=== PATIENT | female | born 1975 | race Caucasian/White ===

== ENCOUNTER → 2017-12-27 10:15 | Outpatient (CLI) | payer OTHER, MEDICAID, SELFPAY ==
[2017-12-27 11:18] LABS: Add Manual Diff / Slide Review NO; Basophils Percent Auto 0.6 % (0-2); Eosinophils Percent Auto 1.6 % (2-4); Hematocrit 39.4 % (36-46); Hemoglobin 13.4 g/dL (12.0-16.0); Lymphocytes Percent Auto 31.6 % (25-40); Mean Corpuscular HGB Conc 34.1 % (30-36); Mean Corpuscular Hemoglobin 27.1 PG (26-34); Mean Corpuscular Volume 79.3 fL (80-100); Monocytes Percent Auto 7.5 % (3-14); Neutrophils Absolute Auto 4900 /uL (3000-5900); Neutrophils Percent Auto 58.7 % (50-75); Platelet Count 300 X10^3/uL (150-400); Red Blood Cell Count 4.97 X10^6/uL (4.0-5.2); Red Cell Distribution Width 14.2 % (11.6-14.8); White Blood Cell Count 8.4 X10^3/uL (4.5-11.0)
[2017-12-27 11:51] LABS: Hemoglobin A1C% w Est Avg Glu 6.1 % (4.0-6.0)
== END ==
PROVIDERS: Visit Provider Specialist
DX: N92.0 Excessive and frequent menstruation with regular cycle (principal)
CPT/HCPCS: 36415; 83036; 85025

== ENCOUNTER → 2018-01-19 16:40 | Outpatient (CLI) | payer OTHER, MEDICAID, SELFPAY ==
[2018-01-19 17:25] LABS: Add Manual Diff / Slide Review NO; Basophils Percent Auto 0.6 % (0-2); Eosinophils Percent Auto 1.2 % (2-4); Hematocrit 43.4 % (36-46); Hemoglobin 14.4 g/dL (12.0-16.0); Lymphocytes Percent Auto 30.9 % (25-40); Mean Corpuscular HGB Conc 33.1 % (30-36); Mean Corpuscular Hemoglobin 26.8 PG (26-34); Mean Corpuscular Volume 81.1 fL (80-100); Monocytes Percent Auto 6.9 % (3-14); Neutrophils Absolute Auto 8500 /uL (3000-5900); Neutrophils Percent Auto 60.4 % (50-75); Platelet Count 330 X10^3/uL (150-400); Red Blood Cell Count 5.35 X10^6/uL (4.0-5.2); Red Cell Distribution Width 13.9 % (11.6-14.8); White Blood Cell Count 14.1 X10^3/uL (4.5-11.0)
== END ==
PROVIDERS: Visit Provider Specialist
DX: N92.0 Excessive and frequent menstruation with regular cycle (principal)
CPT/HCPCS: 36415; 85025

== ENCOUNTER 2018-01-26 07:41 | Day surgery (SDC) | payer OTHER, MEDICAID, SELFPAY ==
[2018-01-14 13:23] VITALS: BMI 46.2
[2018-01-26] VITALS (14 sets, daily range): BP systolic 122–158; BP diastolic 72–98; PULSE 56–99; RESP 15–37; TEMP 36.2–36.6; O2SAT 89–98; BMI 45.9
--- NOTE | 2018-01-26 | PATH_ITS ---
[facility] Accession Number: [id number] . 01 Material submitted: . UTERUS . 02 Diagnosis: Uterus, Procedure Not Specified (Received As Multiple Tissue Fragments, Aggregate Weight 95 grams): Proliferative endometrium; negative for glandular hyperplasia, cytologic atypia, and malignancy. Myometrium involved by leiomyoa(s); negative for atypia and malignancy. MRV/01/28/2018 . 02 Electronically signed: . Mar Garza MD, Pathologist NPI- [id number] . 01 Gross description: . Received in formalin, labeled uterus, is a uterus in multiple pieces (95 grams, 10.5 x 6.5 x 5.2 cm in aggregate). The cervix, ovaries and fallopian tubes are absent. The tissue cannot be oriented as to anterior and posterior, and the endometrium and myometrium cannot be grossly measured. The serosa is angulo smooth and shiny. The parenchyma is angulo-white with a white whorled pattern. Platform Supervisor tissue is submitted in cassettes A1-A4. ([id number]) /[facility] . 02 Pathologist provided ICD-10: D25.9 . 02 CPT . 258773 Performed at: 01 [facility] [address], [place], [place] [id number] MD Jake Claire MD Phone: [phone] Performed at: 02 [facility] [address] [place], [place] [id number] MD Denilson Kovacs MD Phone: [phone]
--- NOTE | 2018-01-26 08:34 | PM.PREOP ---
Pre-operative Note Interval Note Pre-op Check: Yes History & Physical Reviewed by Physician and Yes Exam Performed Changes: Yes H&P completed within 30 days and has changed as indicated here:: insurance will not cover salpingectomy so will not perform unless diseased
[2018-01-26] MEDS: ONDANSETRON 4 MG/2 ML INJ IV (08:37)
[2018-01-26] MEDS: LACTATED RINGERS 1,000 ML 21 ML IV ×2 (08:37→09:20)
[2018-01-26] MEDS: CLINDAMYCIN 900 MG/50 ML PIGGYBACK 50 MG IV (08:45)
--- NOTE | 2018-01-26 09:18 | SUR.OPER ---
Lithotomy on padded OR bed, head on gel donut, gel roll to shoulders, arms secured on padded arm boards at <90 degrees abduction. Legs secured in padded yellow fins stirrups.
[2018-01-26] MEDS: BUPIVACAINE 0.5% W/ EPI (PF) VIAL 30 ML INJ (09:41)
--- NOTE | 2018-01-26 09:45 | SUR.OPER ---
Lithotomy on padded OR bed. [place]avan Pad Positioner under torso. Head on pillow, arms extended less than 90 degrees and secured. Legs secured in padded yellow fins stirrups.
--- NOTE | 2018-01-26 11:08 | PM.OP.1 ---
Operative Date/Time/Diagnoses Date of procedure: 01/26/18 Time of procedure: 11:08 Pre-op diagnosis: Menorrhagia with likely adenomyosis on ultrasound Post-op diagnosis: same Procedure & Clinicians Procedure: Laparoscopic supracervical hysterectomy Same procedure as scheduled: Yes Indications: Menorrhagia Surgeon: Rosario Bahena Division Sales Manager: Katie Salvador Anesthesia Type: General Operative Notes Findings: Normal intra-abdominal contents. Status post tubal ligation. Normal ovaries. Closure Type: primary Specimen(s): other (Uterus above the level of the cervix) Applied: catheter Estimated Blood Loss (mL): 100 Blood products transfused: none Procedure in detail: Patient is brought to the operating room where she underwent general anesthesia and placed in low yellowfin stirrups. She was prepped and draped in the usual sterile fashion. A check list was reviewed with the staff in the room prior to beginning of the case. Patient had pulsatile stockings in place and functional. 900 mg clindamycin were in prior to beginning of the case.. A latex-free [place] catheter was placed. A single-tooth tenaculum was placed on the anterior lip of the cervix and the cervix dilated to a #6 Hegar dilator. The uterine manipulator was placed through the cervix into the uterus with the balloon inflated with 3 mL of air. The area of the umbilical incision and the 5 mm right and left lower quadrant incisions were injected with Marcaine. An incision was made with scalpel. The verries needle was placed into the abdomen but could not confirm in the appropriate place with withdrawal on a syringe and then free flow of fluid down through the needle so an incision was made in the umbilicus. The incision was carried down to the fascial layer which was incised transversely and held with 0 Polysorb suture x2. Peritoneum was entered bluntly and the Bell cannula was placed in the abdomen. The abdomen was insufflated with CO2. There did not appear to be any damage is placement of the trocar. The right and left lower quadrant incisions were made with the scalpel and the trochars placed without damage to internal structures. The PK forceps were used to cauterize the utero-ovarian ligaments. The round ligaments were cautery on both sides. Sequential bites were taken down the broad ligaments. The uterine arteries were cauterized. An incision was made above the level bladder pushing the bladder away from the cervix. The FAVIOLA loop was placed around the uterus and the uterus was amputated above the level of the bladder. Bleeding was controlled with the PK forceps. The PK forceps were used to cauterize in the endocervical canal. A supracervical incision was made and an 11 mm port placed. A 15 mm Endo Catch bag was placed in the abdomen. The uterus, tubes and ovaries were placed in the bag and brought up through the suprapubic port site. The Braxton O was placed. The uterus was hand morselized. The abdomen was reinsufflated and adequate hemostasis was noted. The trochars were removed and the CO2 allowed escape from the abdomen. The fascia layer of the suprapubic site was repaired with 0 Polysorb suture. Skin was closed with 4-0 Monocryl suture at the suprapubic site and the other 3 sites. The patient went to recovery room in good condition. Counts of instruments and sponges were correct. Complications: none Condition: stable Disposition: Acute Care
[2018-01-26] MEDS: HYDROMORPHONE 2 MG INJ 0.5 MG IV ×2 (11:09→11:22)
[2018-01-26] MEDS: KETOROLAC 30 MG/ML VIAL IV (11:12)
--- NOTE | 2018-01-26 11:34 | SUR.PHASEI ---
Pt declined po intake. Denied nausea. O2 [id number].
--- NOTE | 2018-01-26 11:45 | SUR.PHASEI ---
Report called to VESNA Gamino
--- NOTE | 2018-01-26 12:04 | SUR.PHASEI ---
Dr. Bahena notified urine very cloudy, ua ordered. Hanny notified
--- NOTE | 2018-01-26 12:05 | SUR.PHASEI ---
Pt transferred to the floor. Report to Hanny. VS stable, Bandaids cdi x3, Aquacel CDI. IV saline locked. Colunga patent, urine cloudy. CPAP and belongings bag in room. Pt's friend, Mary, notified patient in 203.
--- NOTE | 2018-01-26 13:41 | PC.NURSE ---
Addendum entered by Hanny Gibson R.N. 01/26/18 14:09: Pt given 2 percocet for discomfort and given effexor. Denies nausea after taking. Pts u/a just sent down to lab as well. Original Note: Pt states that she is in a bit discomfort but pain is tolerable. She has 3 lap sites to lower abdomen and then a small aquacel under panus area. Pt is on LR at 100cc/hr. Colunga put out yellow merky urine. There is an order to obtain a u/a. VSS and pt is A&Ox3. BT are Hypoactive x4. She is tolerating apple juice fine. Denies nausea and scds machine being looked for currently. Pts and daughter are visiting in room now. Pt has been admitted to the floor.
[2018-01-26] MEDS: LACTATED RINGERS 1,000 ML 100 ML IV (13:55)
[2018-01-26] MEDS: VENLAFAXINE ER 75 MG CAP 150 MG PO (13:55)
[2018-01-26] MEDS: OXYCODONE/ACETAMINOPHEN 5/325 TABLET 2 TAB PO (13:55)
[2018-01-26 16:02] LABS: Bacteria Urine None Seen; WBC Urine None Seen (0-5/HPF)
[2018-01-26 16:03] LABS: Appearance Urine UA CLEAR; Bilirubin Urine UA NEGATIVE (NEGATIVE); Color Urine UA YELLOW; Glucose Urine UA 1+ g/dL (Normal); Ketones Urine UA NEGATIVE (NEGATIVE); Leukocyte Esterase Urine UA NEGATIVE (NEGATIVE); Nitrite Urine UA NEGATIVE (Negative); Occult Blood Urine UA 1+ (Negative); Protein Urine UA NEGATIVE (Negative); Urobilinogen Urine UA 0.2 E.U./dL (0.2); pH Urine UA 5.5 (4.5-8.0)
[2018-01-26 16:18] LABS: RBC Urine 1-5/HPF (0-5/HPF)
--- NOTE | 2018-01-26 17:15 | PC.NURSE ---
Addendum entered by Anastasia Canchola R.N. 01/26/18 20:58: Pt had relatively uneventful evening. IV not HL. Denies discomfort. Call light w/in reach. Dsg CDI. Call light w/in reach, bed alarm on for pt safety. Continue w/plan of care. Original Note: Pt resting at intervals. Order recieved to discontinue gutierrez. 750cc clear urine in cath when D/C'd. Assisted to BR 30 min later and states she voided but missed the hat. Lapsites on abdomen CDI. IV LR infusing @ 100cc/hr via pump into LFA w/o incidence. Stable post op course. Call light w/in reach, bed alarm on for pt safety.
[2018-01-26] MEDS: TRAZODONE 100 MG TABLET PO (19:33)
[2018-01-26] MEDS: DOCUSATE 250 MG CAPSULE PO (19:33)
[2018-01-27] MEDS: OXYCODONE/ACETAMINOPHEN 5/325 TABLET 2 TAB PO ×2 (02:23→10:48)
[2018-01-27 02:32] VITALS: BP 138/67; PULSE 85; RESP 20; TEMP 36.4; O2SAT 98
[2018-01-27 06:40] VITALS: BP 107/58; PULSE 74; RESP 20; TEMP 36.6; O2SAT 95
[2018-01-27] MEDS: PANTOPRAZOLE 40 MG TABLET PO (07:42)
[2018-01-27 08:11] LABS: Add Manual Diff / Slide Review NO; Basophils Percent Auto 0.2 % (0-2); Eosinophils Percent Auto 0.1 % (2-4); Hematocrit 37.3 % (36-46); Hemoglobin 12.4 g/dL (12.0-16.0); Lymphocytes Percent Auto 10.3 % (25-40); Mean Corpuscular HGB Conc 33.2 % (30-36); Mean Corpuscular Hemoglobin 26.7 PG (26-34); Mean Corpuscular Volume 80.4 fL (80-100); Monocytes Percent Auto 7.8 % (3-14); Neutrophils Absolute Auto 16800 /uL (3000-5900); Neutrophils Percent Auto 81.6 % (50-75); Platelet Count 316 X10^3/uL (150-400); Red Blood Cell Count 4.64 X10^6/uL (4.0-5.2); Red Cell Distribution Width 14.1 % (11.6-14.8); White Blood Cell Count 20.5 X10^3/uL (4.5-11.0)
--- NOTE | 2018-01-27 08:46 | P.DS_ITS ---
History of Present Illness Date Patient Seen: 01/27/18 Time Patient Seen: 08:42 Chief complaint: [id number] LSCH *OPB* menorrhagia Narrative: Patient with menorrhagia for laparoscopic supracervical hysterectomy Discharge Providers Date of admission: 01/26/2018 Consults: 01/26/18 08:10 Consult to Respiratory Therapy Evaluate & Treat Comment: Physician Instructions: Evaluate and treat Discharge provider: Rosario Bahena MD Discharge Date: 01/27/18 Summary Discharge Diagnosis: Menorrhagia status post laparoscopic supracervical hysterectomy Hospital Course: Patient underwent a laparoscopic supracervical hysterectomy on 01/26/2018. She did well post operative. She was ambulatory and urinating well. Her pain was under control with minimal pain medicine. Status at Discharge Functional status at discharge: independent ambulation Overall status at discharge: patient is progressing back to baseline Time Spent with Patient Less than 30 minutes Exam Vital Signs (past 8 hours): - 01/27/18 02:32 01/27/18 06:40 Temperature 97.5 F L 97.9 F Pulse Rate 85 74 Respiratory Rate 20 20 Blood Pressure 138/67 107/58 L Pulse Oximetry 98 95 Oxygen Delivery Method Room Air Oxygen Flow Rate 0 Narrative Exam Narrative: Patient's abdomen is soft with appropriate tenderness. Her dressings are clean dry and intact. Minimal vaginal bleeding. Extremities without edema and nontender. Objective Labs Result Diagrams: 01/27/18 07:48 Labs: Laboratory Results - last 24 hr 01/26/18 01/27/18 14:08 07:48 WBC 20.5 H RBC 4.64 Hgb 12.4 Hct 37.3 MCV 80.4 MCH 26.7 MCHC 33.2 RDW 14.1 Plt Count 316 Neut % (Auto) 81.6 H Lymph % (Auto) 10.3 L [place] % (Auto) 7.8 Eos % (Auto) 0.1 L Baso % (Auto) 0.2 Neut # (Auto) 46665 H Urine Color Yellow Urine Appearance Clear Urine pH 5.5 Ur Specific [place] 1.010 Urine Protein Negative Urine Glucose (UA) 1+ Urine Ketones Negative Urine Occult Blood 1+ H Urine Nitrate Negative Urine Bilirubin Negative Urine Urobilinogen 0.2 Ur Leukocyte Esterase Negative Urine RBC 1-5/hpf Urine WBC None seen Urine Bacteria None seen Ur Culture Indicated? Not Reportable Micro UA Comment Not Reportable Discharge Plan Discharge Plan Patient Disposition: Home Discharge Med Rec/Prescriptions Prescriptions: New oxycodone-acetaminophen 5-325 mg Tablet 2 tab PO Q4HR PRN (Reason: Pain, Severe (7-10)) Qty: 30 RF: 0 Continue cetirizine 10 MG tablet 10 mg PO QDAYP PRN (Reason: Allergies) Qty: 0 RF: 0 venlafaxine [Effexor XR] 150 MG capsule,extended release 24hr 150 mg PO QDAY Qty: 0 RF: 0 trazodone 100 MG tablet 100 mg PO HS Qty: 0 RF: 0 lisinopril 5 MG tablet 5 mg PO QDAY Qty: 0 RF: 0 oxycodone-acetaminophen [Endocet] 5-325 mg tablet 2 tab PO Q4-6H PRN (Reason: pain) Qty: 30 RF: 0 omeprazole 40 mg capsule,delayed release(DR/EC) 40 mg PO DAILY RF: 0 sucralfate [Carafate] 1 gram tablet 1 gram PO QACHS RF: 0 hydroxyzine pamoate [Vistaril] 25 mg capsule 25 mg PO Q4HR PRN (Reason: Anxiety) RF: 0 Follow up/Referrals: Rosario Bahena MD [Physician] - 1 Week (pt has appt scheduled) Discharge Orders: Discharge (Order); Ordered 01/27/18 Ordered By: Rosario Bahena Provider Discharge Instructions Diet: Regular Activity: nothing in vagina for 4 weeks Skin/Wound/Dressing Care Report to your healthcare provider any signs of infection, such as:: chills, fever, increased pain and unusual drainage Dressing: leave lower dressing on until postop visit may remove other bandaids ok to get wet today pat dry steristips Visit Report/Discharge Packet Stand Alone Forms: Surgery Discharge Discharge Data Attending Provider: Rosario Bahena Quality VTE Deep Vein Thrombosis/Pulmonary Embolism Present on Admission: No
[2018-01-27] MEDS: DOCUSATE 250 MG CAPSULE PO (10:02)
[2018-01-27] MEDS: LISINOPRIL 5 MG TABLET PO (10:03)
[2018-01-27] MEDS: VENLAFAXINE ER 75 MG CAP 150 MG PO (10:03)
--- NOTE | 2018-01-27 11:12 | PC.NURSE ---
Ariana was able to freely ambulate and shower this AM. Taking Percocet for pain mgmt. with good relief. She is eating general diet. Voiding w/ out problems. She states she has little to no vag. discharge. VSS. Scope sites X 3 covered with bandaids, which were changed after she showered. Lower abd. drsg. clean/dry/intact and left to be changed by MD at first post-op appt. Ariana was disch. home to care of at 1110.
--- NOTE | 2018-01-27 15:10 | CM.IDA ---
No barriers identified in multi-disciplinary rounds to pt's safe DC home today. Pt eager to DC home, no DC concerns. JW
== END 2018-01-27 11:10 | disposition home or self-care (01) ==
LOC: OR 07:43 → AC 07:44
PROVIDERS: Visit Provider Specialist
PROC: 0UT94ZL Resection of Uterus, Supracervical, Percutaneous Endoscopic Approach (ICD-10-PCS; CPT 58542; principal; 2018-01-26 08:45)
DX: D25.9 Leiomyoma of uterus, unspecified (principal); G47.33 Obstructive sleep apnea (adult) (pediatric)
CPT/HCPCS: 58542; 36415; 81001; 85025; 88305; J0330; J1100; J1170; J1885; J2405; J2704; J2765; J3010

== ENCOUNTER 2018-02-06 19:39 | Inpatient (IN) | payer OTHER, MEDICAID, SELFPAY ==
[2018-01-26 13:18] VITALS: BMI 45.9
[2018-02-06] VITALS (8 sets, daily range): BP systolic 89–136; BP diastolic 53–90; PULSE 75–90; RESP 16–22; TEMP 36.7–37.4; O2SAT 92–100; BMI 44.9
--- NOTE | 2018-02-06 21:52 | PM.PREOP ---
Pre-operative Note Interval Note Pre-op Check: Yes History & Physical exam performed today by Physician Changes: No
--- NOTE | 2018-02-06 21:53 | PM.GYNHP.1 ---
History of Present Illness Reason for admission: other Narrative: Ariana Gibson is a 42 year old female with postoperative incision abscess. Patient underwent a laparoscopic supracervical hysterectomy on 01/27/2018. She was seen 1 week later for postop exam. She seems to be doing well at that time. The day after that she began to feel more uncomfortable with her incision. Today she all of a sudden noticed discharge from her incision and began having possible fever. She was having some nausea. She has not had any vaginal bleeding. No problems with constipation or diarrhea. No problems with urination. PFSH Medical History Anxiety (Acute) Asthma (Acute) Depression (Acute) Hypertension (Acute) Sleep apnea (Acute) Dysmenorrhea (Acute) Menorrhagia (Acute) Uterus, adenomyosis (Acute) Surgical History S/P hysterectomy (Acute) History of tubal ligation (Acute) Status post delivery (Resolved) Status post dilation and curettage (Resolved) Status post laparoscopic cholecystectomy (Resolved) Social History household members: spouse and children Smoking Status: Never smoker alcohol intake: current Meds Home Medications Medication Instructions Recorded Confirmed Type cetirizine 10 mg PO QDAYP PRN #0 03/05/17 02/02/18 History lisinopril 5 mg PO QDAY #0 03/05/17 02/02/18 History trazodone 100 mg PO HS #0 03/05/17 02/02/18 History omeprazole 40 mg capsule,delayed 40 mg PO DAILY 12/27/17 02/02/18 History release sucralfate 1 gram tablet 1 gram PO QACHS 12/27/17 02/02/18 History oxycodone-acetaminophen 5 mg-325 2 tab PO Q4-6H PRN #30 tab 01/19/18 02/02/18 Rx mg tablet hydroxyzine pamoate [Vistaril] 25 mg PO Q4HR PRN 01/26/18 02/02/18 History venlafaxine [Effexor XR] 150 mg PO BEDTIME 02/06/18 02/06/18 History Allergies Allergy/AdvReac Type Severity Reaction Status Date / Time cefaclor [From CECLOR] Allergy Unknown Hives Verified 02/02/18 09:13 latex [LATEX] Allergy Unknown Rash, Verified 02/02/18 09:13 severe itching methylergonovine Allergy Unknown Chest Verified 02/02/18 09:13 [From METHERGINE] pressure Review of Systems Review of Systems Patient feeling ill with slight temperature. Increasing pain in her incision with sudden drainage. All systems reviewed & are unremarkable except as noted in HPI and below Exam Narrative Exam Narrative: Patient's HEENT exam within normal limits. Lungs are clear to auscultation percussion. Heart is regular rate and rhythm, no S3-S4 or murmurs. Abdomen is soft with her incision of the umbilicus and upper incisions. Her suprapubic incision site is draining pus and there is extensive redness of the skin in that area. Pelvic exam deferred for exam under anesthesia. Extremities without edema nontender. Objective Labs Labs: Patient had blood work done that would be general that showed a white blood cell count of 19. Assessment & Plan (1) Incisional abscess: Current visit: Yes Status: Acute Plan: Assessment/Plan Narrative: Patient will be taken for exploration of her incision with drainage of abscess and packing. Cultures of the abscess will be performed. She will be started on IV antibiotics. Consent form was signed with the patient, questions answered. Time Spent With Patient Time with patient: 25 - 35 minutes Quality VTE Deep Vein Thrombosis/Pulmonary Embolism Present on Admission: No
[2018-02-06] MEDS: LACTATED RINGERS 1,000 ML 100 ML IV (22:04)
--- NOTE | 2018-02-06 22:07 | PC.NURSE ---
2100 Pt to [facility] Acute Care from [facility]/EMS. Alert/oriented. Abdominal Pain 5-6/10, received pain meds/zofran in route. MD Bahena called to inform her that pt had arrived. Surgical crew called in. Spouse present at bedside. Oriented to room and call light. 2154: Pt off AC floor to surgery via bed.
[2018-02-06] MEDS: CLINDAMYCIN 900 MG/50 ML PIGGYBACK 50 MG IV (22:10)
--- NOTE | 2018-02-06 22:51 | PC.NURSE ---
2144- OR up to get pt. went with pt. cpap taken downstairs with pt. fluids paused. 2099- pt arrived via EMS. Pt compliant with admission. oriented to hospital room and procedures. pt admitted and fluids continued. vss. afebrile. Pt belongings and call light within reach. will continue to monitor.
--- NOTE | 2018-02-06 23:15 | PM.OP.1 ---
Operative Date/Time/Diagnoses Date of procedure: 02/06/18 Time of procedure: 23:15 Pre-op diagnosis: Incisional abscess Post-op diagnosis: same Procedure & Clinicians Procedure: Incision and drainage of incisional abscess Same procedure as scheduled: Yes Indications: Patient with 10 days postoperative laparoscopic supracervical hysterectomy with increasing incisional pain followed by a redness and drainage from the incision. CT scan showed abscess cavity under the skin above the fascia. Surgeon: Rosario Bahena Click Yes if Unassisted: Yes Anesthesia Type: General Operative Notes Findings: Infected seroma suprapubic incision site normal exam under anesthesia of pelvis Closure Type: not applicable Specimen(s): other (Aerobic and anaerobic cultures) Applied: other (Gauze packing) Estimated Blood Loss (mL): 5 Blood products transfused: none Procedure in detail: Patient was brought to the operating room where she underwent general anesthesia. She was initially placed in stirrups so a pelvic exam could be performed and was normal. No bleeding or discharge from the vagina. No evidence of infection of the cervix. The legs were replaced in the supine position. The abdomen was cleaned with Betadine. The patient was draped in the usual sterile fashion. A check system was reviewed with the staff in the room prior to beginning the case. The IV clindamycin was started prior to beginning of the case. Aerobic and anaerobic cultures were performed from the incision. The incision was already slightly open. The incision was easily opened with a clamp. Probing of the incision did not reveal any defect in the fascia. The incision was irrigated. There did not appear to be any necrotic tissue. The incision was packed with gauze dressing. Additional dressing placed on top. The patient went to recovery room in good condition. Counts of instruments sponges were correct. Complications: none Condition: stable Disposition: Acute Care Plan for aftercare: Patient will receive IV antibiotics and changing of the packing until stable
[2018-02-07] VITALS (9 sets, daily range): BP systolic 100–119; BP diastolic 50–73; PULSE 58–75; RESP 16–20; TEMP 36.2–36.9; O2SAT 94–99
[2018-02-07] MEDS: MORPHINE 2 MG/ML INJ IV ×4 (00:53→17:36)
[2018-02-07] MEDS: LACTATED RINGERS 1,000 ML 100 ML IV ×2 (00:56→06:15)
[2018-02-07] MEDS: VENLAFAXINE ER 75 MG CAP 150 MG PO ×2 (02:40→20:36)
[2018-02-07] MEDS: CLINDAMYCIN 900 MG/50 ML PIGGYBACK 50 MG IV ×3 (02:44→16:19)
[2018-02-07 07:40] LABS: Add Manual Diff / Slide Review NO; Basophils Percent Auto 0.4 % (0-2); Hematocrit 34.7 % (36-46); Hemoglobin 11.6 g/dL (12.0-16.0); Lymphocytes Percent Auto 5.5 % (25-40); Mean Corpuscular HGB Conc 33.3 % (30-36); Mean Corpuscular Hemoglobin 26.8 PG (26-34); Mean Corpuscular Volume 80.6 fL (80-100); Monocytes Percent Auto 3.1 % (3-14); Neutrophils Absolute Auto 14800 /uL (3000-5900); Platelet Count 327 X10^3/uL (150-400); Red Blood Cell Count 4.31 X10^6/uL (4.0-5.2); Red Cell Distribution Width 13.9 % (11.6-14.8); White Blood Cell Count 16.2 X10^3/uL (4.5-11.0)
--- NOTE | 2018-02-07 07:47 | PC.NURSE ---
Patient arrived to room 213 from PACU at 2319 last night. Spouse is with her at the bedside. Bulky dressing is CDI. IVFR.
[2018-02-07] MEDS: OXYCODONE/ACETAMINOPHEN 5/325 TABLET 2 TAB PO ×3 (08:50→22:15)
--- NOTE | 2018-02-07 12:53 | CM.DPNOTE ---
Discharge Planning/Care Management DCP: assessment: case received, EMR reviewed and met with pt. She is found sitting up in chair, bedside fan on. Introduced self and role. Pt is a 42 year old female who READMITTED to care of RESPIRATORY MEDICINE PHYSICIAN physician: Dr. Bahena. Pt was here for a scheduled hysterectory on 01/26 and says all went well and she discharged home on 01/27. Payer: [facility]/Medicaid. Pt was taken to surgery late last night/I&D incisional abscess. She is is now on IV antibiotics, cultures are pending, wound is being packed. P: follow as POC unfolds. If able, pt will return home to her family ( and children) when stable for same....will follow to see what might be needed. CM Discharge Assessment Start: 02/07/18 12:51 Freq: Status: Active Protocol: Document 02/07/18 12:51 ITV (Rec: 02/07/18 12:53 ITV [id number]) Discharge Planning Assessment Advance Directives? 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 Yes Whiteboard Updated in Patient Room with Yes name and ext. # of Milk Hauler Review Status In Process Next Review Type Continued Stay Review
--- NOTE | 2018-02-07 18:00 | PM.PN.1 ---
Subjective Date Patient Seen: 02/07/18 Time Patient Seen: 18:00 Interval history: Postoperative day 1 I and D of incisional abscess. Patient states she feels much better. She is not nauseated. She denies any fevers Exam Vital Signs (past 8 hours): - 02/07/18 11:00 02/07/18 15:25 Temperature 97.5 F L 97.7 F Pulse Rate 58 L 74 Respiratory Rate 20 18 Blood Pressure 119/65 119/73 Pulse Oximetry 98 99 Oxygen Delivery Method Room Air Oxygen Flow Rate 0 Narrative Exam Narrative: Patient's abdomen is soft and nontender. Her incision is much less red than preop. The incisional packing was removed and replaced. There is no evidence of necrosis. Objective Labs Result Diagrams: 02/07/18 07:30 Labs: Laboratory Results - last 24 hr 02/07/18 07:30 WBC 16.2 H RBC 4.31 Hgb 11.6 L Hct 34.7 L MCV 80.6 MCH 26.8 MCHC 33.3 RDW 13.9 Plt Count 327 Neut % (Auto) 91.0 H Lymph % (Auto) 5.5 L [place] % (Auto) 3.1 Eos % (Auto) 0.0 L Baso % (Auto) 0.4 Neut # (Auto) 37476 H Assessment & Plan (1) Incisional abscess: Current visit: Yes Status: Acute (2) Morbid obesity with BMI of 40.0-44.9, adult: Current visit: Yes Status: Acute (3) Sleep apnea treated with nocturnal BiPAP: Current visit: Yes Status: Acute Plan: Assessment/Plan Narrative: Patient will be continued on IV antibiotics and packing changes until return of culture and sensitivity and is long as patient remains afebrile and improving. Likely home on 02/09/2018. Preauthorization for wound care clinic is underway. Quality VTE Deep Vein Thrombosis/Pulmonary Embolism Present on Admission: No
--- NOTE | 2018-02-07 18:04 | P.PN_ITS ---
Subjective Date Patient Seen: 02/07/18 Time Patient Seen: 18:00 Interval history: Postoperative day 1 I and D of incisional abscess. Patient states she feels much better. She is not nauseated. She denies any fevers Exam Vital Signs (past 8 hours): - 02/07/18 11:00 02/07/18 15:25 Temperature 97.5 F L 97.7 F Pulse Rate 58 L 74 Respiratory Rate 20 18 Blood Pressure 119/65 119/73 Pulse Oximetry 98 99 Oxygen Delivery Method Room Air Oxygen Flow Rate 0 Narrative Exam Narrative: Patient's abdomen is soft and nontender. Her incision is much less red than preop. The incisional packing was removed and replaced. There is no evidence of necrosis. Objective Labs Result Diagrams: 02/07/18 07:30 Labs: Laboratory Results - last 24 hr 02/07/18 07:30 WBC 16.2 H RBC 4.31 Hgb 11.6 L Hct 34.7 L MCV 80.6 MCH 26.8 MCHC 33.3 RDW 13.9 Plt Count 327 Neut % (Auto) 91.0 H Lymph % (Auto) 5.5 L [place] % (Auto) 3.1 Eos % (Auto) 0.0 L Baso % (Auto) 0.4 Neut # (Auto) 15424 H Assessment & Plan (1) Incisional abscess: Current visit: Yes Status: Acute (2) Morbid obesity with BMI of 40.0-44.9, adult: Current visit: Yes Status: Acute (3) Sleep apnea treated with nocturnal BiPAP: Current visit: Yes Status: Acute Plan: Assessment/Plan Narrative: Patient will be continued on IV antibiotics and packing changes until return of culture and sensitivity and is long as patient remains afebrile and improving. Likely home on 02/09/2018. Preauthorization for wound care clinic is underway. Quality VTE Deep Vein Thrombosis/Pulmonary Embolism Present on Admission: No
[2018-02-07] MEDS: SODIUM CHLORIDE 0.9% FLUSH 10 ML IV (20:29)
[2018-02-07] MEDS: CLINDAMYCIN 900 MG/50 ML PIGGYBACK 100 MG IV (20:31)
[2018-02-07] MEDS: TRAZODONE 100 MG TABLET PO (20:38)
--- NOTE | 2018-02-07 22:18 | PC.NURSE ---
Pt is A and O x 4, VSS. Incision from I and D weeping sero sanguinous fluid, and packing changed today by MD. Outer dressing is 4 X 4 s in the fold and abd on top. Pt rates pain 4-6/10; gets good relief from 2 perocet. Tolerating ABOs well. HR reg and LS clear. + BT x 1, hard to hear. Pt is calm and cooperative.
[2018-02-08] MEDS: CLINDAMYCIN 900 MG/50 ML PIGGYBACK 50 MG IV (01:08)
[2018-02-08] MEDS: MORPHINE 2 MG/ML INJ IV ×2 (01:14→10:06)
[2018-02-08 01:45] VITALS: BP 100/55; PULSE 50; RESP 14; TEMP 36.4; O2SAT 99
[2018-02-08 05:22] VITALS: BP 99/55; PULSE 50; RESP 15; TEMP 36.6; O2SAT 97
[2018-02-08] MEDS: OXYCODONE/ACETAMINOPHEN 5/325 TABLET 2 TAB PO (08:38)
[2018-02-08 08:57] LABS: Add Manual Diff / Slide Review NO; Basophils Percent Auto 0.5 % (0-2); Eosinophils Percent Auto 0.5 % (2-4); Hematocrit 32.4 % (36-46); Hemoglobin 10.8 g/dL (12.0-16.0); Lymphocytes Percent Auto 20.4 % (25-40); Mean Corpuscular HGB Conc 33.2 % (30-36); Mean Corpuscular Hemoglobin 26.6 PG (26-34); Mean Corpuscular Volume 80.2 fL (80-100); Monocytes Percent Auto 7.9 % (3-14); Neutrophils Absolute Auto 8000 /uL (3000-5900); Neutrophils Percent Auto 70.7 % (50-75); Platelet Count 336 X10^3/uL (150-400); Red Blood Cell Count 4.04 X10^6/uL (4.0-5.2); Red Cell Distribution Width 13.9 % (11.6-14.8); White Blood Cell Count 11.3 X10^3/uL (4.5-11.0)
[2018-02-08 09:00] VITALS: BP 143/63; PULSE 62; RESP 24; O2SAT 100
[2018-02-08 09:56] LABS: Carbon Dioxide 28 mmol/L (22-32); Chloride 103 mmol/L (98-107); HEMOLYSIS < 15 (0-50); Potassium 3.7 mmol/L (3.4-5.1); Sodium 142 mmol/L (137-145)
--- NOTE | 2018-02-08 10:12 | PM.DS.1 ---
History of Present Illness Date Patient Seen: 02/08/18 Time Patient Seen: 10:12 Chief complaint: post op complications Narrative: Patient who was 10 days post operative laparoscopic supracervical hysterectomy and had an increase in pain and discharge from her supra pubic incision. She was evaluated at [facility] and thought to have a superficial wound abscess. She was transported here. Discharge Providers Date of admission: 02/06/18 19:39 Consults: 02/07/18 01:30 Consult to Respiratory Therapy Evaluate & Treat Comment: Physician Instructions: Evaluate and treat Discharge provider: Rosario Bahena MD Discharge Date: 02/08/18 Summary Discharge Diagnosis: wound seroma with superficial wound cellulitis Hospital Course: Patient who was 10 days post operative laparoscopic supracervical hysterectomy and had an increase in pain and discharge from her supra pubic incision. She was evaluated at [facility] and thought to have a superficial wound abscess. She was transported here. She was taken to the operating room where her incision was explored. Appeared to be a seroma that was draining with a mild superficial infection. Patient received IV antibiotics and her incision was packed. She is doing very well. Patient has remained afebrile throughout the hospitalization. Her white count has decreased significantly. Patient's abdomen is soft with appropriate tenderness. Her incision has no further erythema. She will need to continue packing her incision to heal by secondary intention. Exam Vital Signs (past 8 hours): - 02/08/18 05:22 02/08/18 09:00 Temperature 97.8 F Pulse Rate 50 L 62 Respiratory Rate 15 24 Blood Pressure 99/55 L 143/63 H Pulse Oximetry 97 100 Oxygen Delivery Method Room Air Oxygen Flow Rate 0 Narrative Exam Narrative: Abdomen is soft, nontender. Incision shows no further a erythema. Wound packing was removed and replaced. Objective Labs Result Diagrams: 02/08/18 08:20 Labs: Laboratory Results - last 24 hr 02/08/18 08:20 WBC 11.3 H RBC 4.04 Hgb 10.8 L Hct 32.4 L MCV 80.2 MCH 26.6 MCHC 33.2 RDW 13.9 Plt Count 336 Neut % (Auto) 70.7 D Lymph % (Auto) 20.4 L [place] % (Auto) 7.9 Eos % (Auto) 0.5 L Baso % (Auto) 0.5 Neut # (Auto) 8000 H Discharge Plan Discharge Plan Patient Disposition: Home Discharge Med Rec/Prescriptions Prescriptions: New sulfamethoxazole-trimethoprim 800-160 mg Tablet 1 tab PO BID Qty: 20 RF: 0 oxycodone-acetaminophen 5-325 mg Tablet 2 tab PO Q4HR PRN (Reason: Pain, Moderate (4-6)) Qty: 30 RF: 0 Continue cetirizine 10 MG tablet 10 mg PO QDAYP PRN (Reason: Allergies) Qty: 0 RF: 0 trazodone 100 MG tablet 100 mg PO HS Qty: 0 RF: 0 lisinopril 5 MG tablet 5 mg PO QDAY Qty: 0 RF: 0 oxycodone-acetaminophen [Endocet] 5-325 mg tablet 2 tab PO Q4-6H PRN (Reason: pain) Qty: 30 RF: 0 omeprazole 40 mg capsule,delayed release(DR/EC) 40 mg PO PRN PRN (Reason: Acid Reflux) RF: 0 sucralfate [Carafate] 1 gram tablet 1 gram PO QACHS RF: 0 hydroxyzine pamoate [Vistaril] 25 mg capsule 25 mg PO Q4HR PRN (Reason: Anxiety) RF: 0 venlafaxine [Effexor XR] 150 mg Capsule,Extended Release 24hr 150 mg PO BEDTIME RF: 0 Follow up/Referrals: Rosario Bahena MD [Physician] - 02/09/18 1:30 pm (appointment made) Provider Discharge Instructions Diet: Regular Activity: as tolerated Skin/Wound/Dressing Care Report to your healthcare provider any signs of infection, such as:: chills, fever, increased pain and unusual drainage Dressing: Keep as dry as possible Visit Report/Discharge Packet Visit Report Forms: Stroke Signs & Symptoms Discharge Data Attending Provider: Rosario Bahena Admit Date/Time: 02/06/18 19:39 Quality VTE Deep Vein Thrombosis/Pulmonary Embolism Present on Admission: No
[2018-02-08] MEDS: LISINOPRIL 5 MG TABLET PO (11:18)
[2018-02-08] MEDS: TRIMETH/SULFA 160/800 (DS) TABLET 1 TAB PO (11:19)
[2018-02-08] MEDS: SODIUM CHLORIDE 0.9% FLUSH 10 ML IV (11:19)
[2018-02-08 11:30] VITALS: BP 115/53; PULSE 54; RESP 24; O2SAT 96
== END 2018-02-08 13:05 | disposition home or self-care (01) | DRG 711 ==
PROVIDERS: Admitting Provider Specialist; Visit Provider Specialist
PROC: 0J980ZZ Drainage of Abdomen Subcutaneous Tissue and Fascia, Open Approach (ICD-10-PCS; principal; 2018-02-06 21:35)
DX: T81.41XA Infection following a procedure, superficial incisional surgical site, initial encounter (principal); L76.34 Postprocedural seroma of skin and subcutaneous tissue following other procedure; E66.01 Morbid (severe) obesity due to excess calories; Z68.41 Body mass index [BMI] 40.0-44.9, adult; G47.30 Sleep apnea, unspecified; I10 Essential (primary) hypertension; F32.9 Major depressive disorder, single episode, unspecified; F41.9 Anxiety disorder, unspecified; G47.33 Obstructive sleep apnea (adult) (pediatric); L03.311 Cellulitis of abdominal wall
CPT/HCPCS: 10180; 36415; 80051; 85025; 87070; 87075; 87077; 87186; 87205; 94762; J0330; J1100; J2250; J2270; J2405; J2704; J3010

== ENCOUNTER 2020-11-28 11:37 | Emergency (ER) | payer OTHER, MEDICAID, SELFPAY ==
[2018-02-06 21:17] VITALS: BMI 44.9
[2020-11-28 11:43] VITALS: BP 178/108; PULSE 80; RESP 16; TEMP 36.6; O2SAT 98; BMI 43.8
--- NOTE | 2020-11-28 12:13 | ED_ITS ---
HPI - Extremity Injury (Upper) <Erasmo Causey PA-C - Last Filed: 11/28/20 13:17> General Chief Complaint: Extremity Injury, Upper Stated Complaint: left side tingling and on fire Time Seen by Provider: 11/28/20 12:04 Source: patient Mode of arrival: Ambulatory Limitations: no limitations History of Present Illness HPI narrative: Ariana presents today with chief complaint of left shoulder and arm pain that started about 2 weeks ago. She reports that she was picking up a martinez in her kitchen and felt the pain that time. She reports that the pain is worse when she lifts her arm overhead, turns her head to the right, or presses on the upper shoulder upper back area on the left side. She has been taking ibuprofen which only seems to slightly helped her symptoms. She denies any significant fever, rash, decreased range of motion, joint swelling, chest pain, shortness of breath, exertional symptoms, nausea, diaphoresis, vomiting, abdominal pain or any other acute concerns or complaints at this time. Related Data Home Medications Medication Instructions Recorded Confirmed cetirizine 10 mg tablet 10 mg PO QDAYP PRN #0 03/05/17 02/14/18 lisinopril 5 mg tablet 5 mg PO QDAY #0 03/05/17 02/14/18 trazodone 100 mg tablet 100 mg PO HS #0 03/05/17 02/14/18 omeprazole 40 mg capsule,delayed 40 mg PO PRN PRN 12/27/17 02/14/18 release sucralfate 1 gram tablet (Carafate) 1 gram PO QACHS 12/27/17 02/14/18 hydroxyzine pamoate 25 mg capsule 25 mg PO Q4HR PRN 01/26/18 02/14/18 (Vistaril) venlafaxine 150 mg 150 mg PO BEDTIME 02/06/18 02/14/18 capsule,extended release 24 hr (Effexor XR) Previous Rx's Medication Instructions Recorded sulfamethoxazole 800 1 tab PO BID #20 tab 02/08/18 mg-trimethoprim 160 mg tablet methocarbamol 500 mg tablet 500 mg PO BID PRN #15 tab 11/28/20 Allergies Allergy/AdvReac Type Severity Reaction Status Date / Time cefaclor [From [facility]] Allergy Unknown Hives Verified 02/14/18 14:17 latex [LATEX] Allergy Unknown Rash, Verified 02/14/18 14:17 severe itching methylergonovine Allergy Unknown Chest Verified 02/14/18 14:17 [From METHERGINE] pressure Review of Systems <Erasmo Causey PA-C - Last Filed: 11/28/20 13:17> Review of Systems Narrative: As per HPI Patient History <Erasmo Causey PA-C - Last Filed: 11/28/20 13:17> Medical History (Updated 11/28/20 @ 13:17 by Erasmo Causey PA-C) Anxiety Asthma Depression Dysmenorrhea Hypertension Menorrhagia Sleep apnea Uterus, adenomyosis Surgical History (Updated 02/06/18 @ 21:31 by Jimena Shaffer RN) History of tubal ligation S/P hysterectomy Status post delivery Status post dilation and curettage Status post laparoscopic cholecystectomy Social History household members: spouse and children Smoking Status: Never smoker alcohol intake: current Smoking Status: Never smoker alcohol intake frequency: holidays/special occasions only Substance Use Type: does not use Exam <Erasmo Causey PA-C - Last Filed: 11/28/20 13:17> Narrative Exam Narrative: Exam Narrative: Const General: cooperative, healthy appearing, comfortable, no acute distress, well developed and well groomed Nutritional Appearance: Elevated BMI Orientation: alert and oriented x3 HENMT Head: normal to inspection and atraumatic Ears: hearing grossly normal bilaterally Nose: external nose normal and nares normal Face and sinus: normal facial exam Neck Neck: normal visual inspection and supple, no midline spinal tenderness. Left trapezius muscle tenderness noted with palpation. Pain with lateral flexion to the right and with rotation to the right. Resp Effort & Inspection: normal respiratory effort, able to speak in complete sentences, no audible wheezes, not labored, no nasal flaring and no respiratory distress, clear to auscultation bilaterally Cardiac Regular rate and rhythm, no discernible murmurs, rubs or gallops Extremities No significant bony tenderness to palpation. She has left trapezius muscle tenderness with palpation. She has intact range of motion of bilateral upper extremities. Pain is reproduced with raising her left arm against resistance. Neuro General: alert, oriented x3, gait normal, tone normal and moves all extremities Cognition: normal cognition Speech: speech normal Gait: normal gait Skin No rashes or lesions noted. Psych Appearance: grossly normal and well kempt Mental Status: mental status grossly normal Speech and Movement: speech and movement normal Mood: congruent mood Affect: normal affect Initial Vital Signs Initial Vital Signs: Vital Signs Temperature 97.8 F 11/28/20 11:43 Pulse Rate 80 11/28/20 11:43 Respiratory Rate 16 11/28/20 11:43 Blood Pressure 178/108 H 11/28/20 11:43 Pulse Oximetry 98 11/28/20 11:43 <Manfrde Borjas DO - Last Filed: 11/28/20 13:19> Initial Vital Signs Initial Vital Signs: Vital Signs Temperature 97.8 F 11/28/20 11:43 Pulse Rate 80 11/28/20 11:43 Respiratory Rate 16 11/28/20 11:43 Blood Pressure 178/108 H 11/28/20 11:43 Pulse Oximetry 98 11/28/20 11:43 Course <Erasmo Causey PA-C - Last Filed: 11/28/20 13:17> Orders Ordered: Discontinued Medications Ketorolac Tromethamine (Ketorolac 30 Mg/Ml Vial) 30 mg IM NOW ONE Stop: 11/28/20 12:32 Last Admin: 11/28/20 12:39 Dose: 30 mg Documented by: DONALD Vital Signs Vital signs: Vital Signs - 8 hr 11/28/20 11:43 11/28/20 13:04 Temperature 97.8 F Pulse Rate 80 71 Respiratory Rate 16 Blood Pressure 178/108 H 171/102 H Pulse Oximetry 98 99 <Manfred Borjas DO - Last Filed: 11/28/20 13:19> Orders Ordered: Discontinued Medications Ketorolac Tromethamine (Ketorolac 30 Mg/Ml Vial) 30 mg IM NOW ONE Stop: 11/28/20 12:32 Last Admin: 11/28/20 12:39 Dose: 30 mg Documented by: DONALD Vital Signs Vital signs: Vital Signs - 8 hr 11/28/20 11:43 11/28/20 13:04 Temperature 97.8 F Pulse Rate 80 71 Respiratory Rate 16 Blood Pressure 178/108 H 171/102 H Pulse Oximetry 98 99 MDM - Extremity Injury (Upper) <Erasmo Causey PA-C - Last Filed: 11/28/20 13:17> MDM Narrative Medical decision making narrative: I considered ACS, thoracic outlet syndrome, DVT, bony injury. She does have a history of obesity, sleep apnea, and elevated blood pressure which are risk factors for acute coronary syndrome. However, her symptoms are nonexertional, she denies chest pain, dyspnea, diaphoresis, and her symptoms are reproducible on examination with direct palpation. I think that a more life-threatening etiology of her symptoms is less likely at this time. However, strict ER return precautions were discussed with the patient if his symptoms fail to improve with the management discussed. Also recommend that she follow up with her family doctor to assess her hypertension. 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 Patient verbalizes understanding and agrees to plan and has no further concerns at this time. Thank you A [id number] system was used with the dictation of this note. Please disregard any spelling or grammatical errors. Discharge Plan Departure Patient Disposition: Home Clinical Impression: Trapezius muscle spasm Hypertension Qualifiers: Hypertension type: unspecified Qualified Code(s): I10 - Essential (primary) hypertension Instructions: DI for Muscle Spasm Activity Restrictions/Additional Instructions: It was very nice to meet you this afternoon. I suspect that your symptoms are due to a muscle spasm in your shoulder and neck. Please do the stretching that we discussed as well as good range of motion activities to help loosen up the muscle. You can use muscle relaxers as needed but please note that these can make you sleepy. Please only try these at night and do not take while you are working. If you experience chest pain, exertional symptoms, difficulty breathing, fever, rash or have any other acute concerns or complaints do not hesitate to return for re-evaluation. Thank you Erasmo Causey PA-C Prescriptions: New methocarbamol 500 mg tablet 500 mg PO BID PRN (Reason: muscle spasm) Qty: 15 RF: 0 No Action cetirizine 10 MG tablet 10 mg PO QDAYP PRN (Reason: Allergies) Qty: 0 RF: 0 trazodone 100 MG tablet 100 mg PO HS Qty: 0 RF: 0 lisinopril 5 MG tablet 5 mg PO QDAY Qty: 0 RF: 0 omeprazole 40 mg capsule,delayed release(DR/EC) 40 mg PO PRN PRN (Reason: Acid Reflux) RF: 0 sucralfate [Carafate] 1 gram tablet 1 gram PO QACHS RF: 0 hydroxyzine pamoate [Vistaril] 25 mg capsule 25 mg PO Q4HR PRN (Reason: Anxiety) RF: 0 venlafaxine [Effexor XR] 150 mg Capsule,Extended Release 24hr 150 mg PO BEDTIME RF: 0 sulfamethoxazole-trimethoprim 800-160 mg Tablet 1 tab PO BID Qty: 20 RF: 0 <Manfred Borjas, DO - Last Filed: 11/28/20 13:19> Cosign ED Attending Cosignature Attestation: Dr Borjas Co-Sign Statement: I was av ailable for consultation during this patient's emergency department visit. This chart is signed by myself for administrative purposes only. I did not have direct contact with this patient during this visit. They were seen independently by the APC.
[2020-11-28] MEDS: KETOROLAC 30 MG/ML VIAL IM (12:39)
[2020-11-28 13:04] VITALS: BP 171/102; PULSE 71; O2SAT 99
== END 2020-11-28 13:05 | disposition home or self-care (01) ==
PROVIDERS: Emergency Provider Physician Assistant
DX: M62.838 Other muscle spasm (principal); I10 Essential (primary) hypertension
CPT/HCPCS: 96372; 96374; 99283; J1885